=== PATIENT | female | born 1980 | race Caucasian/White ===

== ENCOUNTER 2025-05-04 14:11 | Outpatient (CLI) | payer BC | END 2025-05-04 14:12 | disposition home or self-care (01) | LOC: CT 14:11 | PROVIDERS: ATTEND Family Medicine | DX: R74.8 Abnormal levels of other serum enzymes (principal); R93.2 Abnormal findings on diagnostic imaging of liver and biliary tract; K76.0 Fatty (change of) liver, not elsewhere classified | CPT/HCPCS: 74177 ==